=== PATIENT | female | born 1985 | race Caucasian/White ===

== ENCOUNTER 2019-09-20 15:31 | Outpatient (CLI) | payer BC, SELFPAY ==
[2019-09-20 16:42] LABS: Alanine Aminotransferase 80 U/L (4-35); Albumin Level 4.5 g/dL (3.5-5.1); Alkaline Phosphatase 93 U/L (38-126); Aspartate Amino Transferase 68 U/L (14-36); Bilirubin,Total 0.2 mg/dL (0.2-1.3); Blood Urea Nitrogen 12 mg/dL (7-17); Calcium 9.5 mg/dL (8.4-10.2); Carbon Dioxide 23 mmol/L (22-30); Chloride 104 mmol/L (98-107); Estimated Glomerular Filt Rate > 60; Glucose 88 mg/dL (65-105); Potassium 3.9 mmol/L (3.4-5.0); Sodium 140 mmol/L (137-145)
== END 2019-09-20 15:32 | disposition home or self-care (01) ==
PROVIDERS: Visit Provider Obstetrics & Gynecology
DX: E87.5 Hyperkalemia (principal)
CPT/HCPCS: 36415; 80053

== ENCOUNTER 2020-03-05 13:11 | Emergency (ER) | payer BC, SELFPAY ==
[2020-03-05 13:21] VITALS: BP 129/81; PULSE 70; RESP 16; TEMP 37.3; O2SAT 100
--- NOTE | 2020-03-05 13:33 | ED.GENADULT ---
HPI - General Adult General Chief complaint: Upper Respiratory Infection Stated complaint: Possible sinus infection Time Seen by Provider: 03/05/20 13:33 Source: patient and RN notes reviewed Mode of arrival: ambulatory Limitations: no limitations History of Present Illness HPI narrative: 34-year-old presents with upper respiratory infection, some facial congestion, facial pressure, and intermittent headache (not the worst of her life) for the past 21 days. Ibuprofen with some relief. Symptoms increase over the past 4 days with the inability to smell stinky stuff such as dirty diapers. No facial swelling. Denies cough. No nasal congestion or rhinorrhea. Denies sore throat. No high fevers, drooling, neck or throat swelling. No voice change. Denies chills, dyspnea, difficulty swallowing, jaw pain, dental pain, foreign body sensation, and rash. No chest pain or shortness of breath. LMP 03/05/20. Remains active. The patient reports she have not been diagnosed with COVID-19. The patient reports she is not waiting for the results of a COVID-19 lab test. The patient reports she do not have fever, chills, weakness, fatigue, myalgia, or facial swelling. The patient reports she do not have a new or worsening cough or shortness of breath. Denies chest pain. The patient reports she do not have any nausea, vomiting, abdominal pain, and diarrhea. Tolerating po intake well. Denies recent traveling. Denies concerns for COVID-19 or exposures been home with limited outdoor exposure except for essential household needs, work, and return home. At this time, patient is not suspected of having COVID-19. Some parts of this dictation were generated by voice recognition software and may contain typographical and/or grammatical inaccuracies. Related Data Allergies Allergy/AdvReac Type Severity Reaction Status Date / Time No Known Allergies Allergy Mild Unverified 06/02/12 16:08 Review of Systems Review of Systems: Narrative: CONSTITUTIONAL: Denies fever, chills, sweats. EYES: Denies visual changes, redness, discharge. ENT: Complains of facial congestion and pressure. Denies otalgia, rhinorrhea, congestion, sore throat. CARDIOVASCULAR: Denies chest pain, palpitations, edema. RESPIRATORY: Denies dyspnea, wheezing, cough. GASTROINTESTINAL: Denies abdominal pain, nausea, vomiting, diarrhea. GENITOURINARY: Denies dysuria, hematuria, abnormal discharge SKIN: Denies rash or itching. MUSCULOSKELETAL: Denies acute back pain, joint pain, or myalgia. NEUROLOGIC: Denies numbness, or focal weakness. Complains of intermittent HOLDER. PSYCHIATRIC: Denies anxiety or depression. All other systems reviewed & are unremarkable except as noted in HPI and below. [facility] Past Medical History Medical History (Updated 03/05/20 @ 14:07 by SUMAN Hawkins) No significant past medical history Surgical History Surgical History (Updated 03/05/20 @ 14:07 by SUMAN Hawkins) No significant past surgical history Family History Family History (Updated 03/05/20 @ 14:07 by SUMAN Hawkins) Father Alive and well Mother Alive and well Social History Social History (Updated 03/05/20 @ 14:08 by SUMAN Hawkins) Smoking status: Never smoker Tobacco type: cigarettes Second hand tobacco smoke exposure: No Alcohol intake: current Substance use: never Living arrangements: with family Occupation/Education: occupation Gender identity (if verbalized by the patient): Female Sexual Orientation (if Verbalized by the Patient): Straight or Heterosexual Comments At time of signature, agree with nurse past medical, surgical, social, and family history. There is no relevant family history pertinent to the presenting complaint. Exam Narrative: Exam Narrative: GENERAL: This is a well-nourished, well-developed patient, in no apparent distress. Talks in full sentences and ambulates with steady gait without dyspnea. HEAD: normocephalic, atrau
== END 2020-03-05 13:50 | disposition home or self-care (01) ==
PROVIDERS: Emergency Provider Nurse Practitioner Family
DX: J01.00 Acute maxillary sinusitis, unspecified (principal)
CPT/HCPCS: 99213; G0463

== ENCOUNTER 2021-05-08 10:20 | Outpatient (CLI) | payer BC, SELFPAY ==
[2021-05-08 11:45] LABS: Hematocrit 32.8 % (37.0-47.0); Hemoglobin 10.3 g/dL (12.0-15.0)
[2021-05-08 11:55] LABS: Glucose 1 Hour PP 50gm Dose 109 mg/dL
[2021-05-08 12:44] LABS: HIV 1/2 Ab P24 Ag Result Negative (Negative)
[2021-05-08] MEDS: RHO(D) IMMUNE GLOBULIN 300 MCG/2 ML SYRINGE IM (17:01)
[2021-05-11 06:59] LABS: Rapid Plasma Reagin Non-Reactive (NonReactive)
== END 2021-05-08 10:21 | disposition home or self-care (01) ==
LOC: ANHLAB 10:22
PROVIDERS: Visit Provider Obstetrics & Gynecology
DX: Z36.89 Encounter for other specified antenatal screening (principal); Z3A.00 Weeks of gestation of pregnancy not specified
CPT/HCPCS: 36415; 82947; 85014; 85018; 85461; 86592; 86703; 90384; 96372; G0432; J2790

== ENCOUNTER 2021-07-18 11:17 | Observation (INO) | payer BC, SELFPAY ==
[2021-07-18 23:17] VITALS: BMI 39.0
[2021-07-19 01:16] VITALS: BP 113/89; PULSE 68
[2021-07-19 01:30] VITALS: BP 133/89; PULSE 71
--- NOTE | 2021-07-19 03:11 | OBADM ---
This patient, Sandrine Benton, admitted to the OB room Labor/Delivery/Recovery 103 for observation. Patient/family oriented to hospital policies and general routines including ID bracelet, bed and alarms, visiting hours, pain management, procedures, bathroom and other care routines, personal items, smoking policy, room service/diet, and visiting hours. Patient/Family are encouraged to report perceived risks to care and to ask questions if they do not understand what they are told or what they should do.
--- NOTE | 2021-08-23 17:04 | PM.OBTRLD ---
OB - Triage/Final Diagnosis Visit Information Comments/Additional reasons for admission: I have assessed the risk for this patient, Sandrine Benton, and determined that she would benefit from observation care. Final Diagnosis (1) False labor: Code(s): O47.9 - False labor, unspecified Status: Acute
== END 2021-07-19 01:45 | disposition home or self-care (01) ==
PROVIDERS: Admitting Provider Obstetrics & Gynecology; Visit Provider Obstetrics & Gynecology
DX: O47.1 False labor at or after 37 completed weeks of gestation (principal); Z3A.38 38 weeks gestation of pregnancy
CPT/HCPCS: G0378; G0379

== ENCOUNTER 2021-07-30 16:50 | Inpatient (IN) | payer BC, SELFPAY ==
[2021-07-30] VITALS (77 sets, daily range): BP systolic 88–141; BP diastolic 46–100; PULSE 63–150; TEMP 36.6–37.6; O2SAT 94–100; BMI 36.8
--- NOTE | 2021-07-30 16:43 | PM.IMHP ---
H&P: HPI History of Present Illness Date/Time: 07/30/21 16:43 35 y/o @ 39w5d here for elective induction of labor. Chief Complaint: Induction of labor Review of Systems Review of Systems: All systems reviewed & are unremarkable except as noted in HPI and below Constitutional: Constitutional: Reports as per HPI and Reports no additional constitutional complaints Eyes: Eyes: Reports as per HPI ENT: Reports system reviewed and no additional complaints, except as documented Cardiovascular: Cardiovascular: Reports as per HPI Respiratory: Respiratory: Reports as per HPI Gastrointestinal: Gastrointestinal: Reports as per HPI Genitourinary: Genitourinary: Reports no additional female genitourinary complaints Musculoskeletal: Musculoskeletal: Reports no additional musculoskeletal complaints Integumentary/Breasts: Skin/Breast: Reports system reviewed and no additional complaints, except as docu Neurologic: Reports system reviewed and no additional complaints, except as documented Psychiatric: Psychiatric: Reports no additional psychiatric complaints Endocrine: Endocrine: Reports no additional endocrine complaints Hematologic/Lymphatic: Hematologic/Lymphatic: Reports no additional hematologic/lymphatic complaints Allergic/Immunologic: Allergic/Immunologic: Reports no additional allergic/immunologic complaints [facility] Past Medical History Medical History (Updated 03/06/20 @ 00:00 by [employer]) No significant past medical history Surgical History Surgical History (Updated 03/05/20 @ 14:07 by SUMAN Hawkins) No significant past surgical history Family History Family History Father Alive and well Mother Alive and well Social History Social History (Updated 03/05/20 @ 14:08 by SUMAN Hawkins) Smoking status: Never smoker Tobacco type: cigarettes Second hand tobacco smoke exposure: No Alcohol intake: current Substance use: never Gender identity (if verbalized by the patient): Female Sexual Orientation (if Verbalized by the Patient): Straight or Heterosexual Spiritual care concerns: No Meds Home Medications and Allergies Home Medications Medication Instructions Recorded Confirmed Type PNV cmb#95-ferrous fumarate-FA 1 tablet PO DAILY 07/15/21 07/19/21 History [] ferrous sulfate [Iron (ferrous 325 mg PO DAILY 07/15/21 07/19/21 History sulfate)] Allergies Allergy/AdvReac Type Severity Reaction Status Date / Time No Known Allergies Allergy Mild Unverified 06/02/12 16:08 Exam Const: General: cooperative and healthy appearing Orientation/consciousness: oriented to person, oriented to place, oriented to time and patient oriented x3 Limitations: no limitations HENMT: Head: normal to inspection Ears: hearing grossly normal bilaterally General nose exam: Normal external nose present Face and sinus: normal facial exam Mouth: Yes Normal oral and palatal mucosa present Teeth and gingiva: dentition normal Throat: posterior oropharynx normal Eyes: General: appearance normal, both eyes and all related structures Neck: Neck: normal visual inspection Thyroid: thyroid normal Chest: Chest palpation & inspection: normal inspection of the chest Resp: Effort & Inspection: normal respiratory effort Auscultation: clear to auscultation bilaterally Cardio: Rate: regular rate Rhythm: regular rhythm GI: Inspection: normal to inspection : General: Yes bimanual renal exam normal bilaterally Skin: General skin exam: normal color and no rashes or lesions noted Neuro: General: oriented to person, oriented to place, oriented to time and patient oriented x3 Extrem: General: normal to inspection Psych: Mental Status: mental status grossly normal
--- OUTSIDE RECORDS SUMMARY | 2021-07-30 16:54 | XMS_ITS ---
:1985 Author Care Team Providers Name Role Phone Anna Pollard Primary Care Provider Unavailable Allergies Code Code System Name Reaction Severity Status Onset NKDA ? Medications Name Status Start Date Stop Date ? ? amoxicillin 875 mg tablet Completed ? 2020 TK 1 T PO Q 12 H drospirenone 3 mg-ethinyl estradiol 0.02 mg tablet Completed ? 01/01/2021 TK 1 T PO QD ergocalciferol (vitamin D2) 1,250 mcg (50,000 unit) capsule Comp leted ? 01/01/2021 TK 1 C PO Q WK fluticasone propionate 50 mcg/actuation nasal spray,suspension C ompleted ? 01/01/2021 INSTIL 1 SPRAY PER NOSTRIL BID iron Active ? Not available loratadine 10 mg tablet Completed ? 01/02/20 TK 1 T PO D ondansetron 4 mg disintegrating tablet Completed ? 07/21/2021 DISSOLVE 1 TABLET ON THE TONGUE EVERY 6 TO 8 HOURS NEEDED ondansetron HCl 4 mg tablet Completed ? 03/01 TAKE 1 TABLET BY MOUTH THREE TIMES DAILY Active ? Not available Problems Name Status Onset Date Source ? Detection Examination Unknown 12/12/[address] Concept Unknown 12/12/2017 History Screening Unknown 01/16/2018 History , Childbirth and Puerperium Unknown 01/16/2018 History Finding Screening for Malformation Unknown 03/16/2018 History Gestation Period, 34 Weeks Unknown 06/21/2018 Histo ry Normal in Multigravida Unknown
--- OUTSIDE RECORDS SUMMARY | 2021-07-30 16:54 | XMS_ITS | Encounter Summary ---
:1985 Author Reason for Visit OB visit 38w3d Assessment and Plan 1. Routine care Discussion Note: None recorded.Patient educational handouts: No information available. Plan of Care Reminders Provider Appointments Ob Routine Micaela Pollard CNM 08/05/2021 11:15AM Lab None ? ? recorded. Referral None ? ? recorded. Procedures None ? ? recorded. Surgeries None ? ? recorded. Imaging None ? ? recorded. Medications Name Start Date ? ? iron ? ? Medications Administered None recorded. Vitals Height Weight BMI Blood Pressure 5 ft 6 in 226 lbs 36.5 kg/m2 128/86 mm[Hg] Results Lab Results None recorded. Allergies Code Code System Name Reaction Severity Onset NKDA ? ? ? Problems Name Status Onset Date Source ? Active 01/22/2021 ? Procedures None recorded. Vaccine List None recorded. Social History Tobacco Smoking Status Never Smoker What is the highest grade or level of school you have [id number] 0-4 completed or the highest
--- OUTSIDE RECORDS SUMMARY | 2021-07-30 16:54 | XMS_ITS | Encounter Summary ---
:1985 Author Reason for Visit OB visit 37W3D Assessment and Plan 1. Routine care Discussion [...] BMI Blood Pressure 5 ft 6 in 228 lbs 36.8 kg/m2 118/80 mm[Hg] Results Lab Results None recorded. Allergies Code Code System Name Reaction Severity Onset NKDA ? ? ? Problems Name Status Onset Date Source ? Active 01/22/2021 ? Procedures None recorded. Vaccine List None recorded. Social History Tobacco Smoking Status Never Smoker What is the highest grade or level of school you have [id number] 0-4 completed or the highest
--- OUTSIDE RECORDS SUMMARY | 2021-07-30 16:54 | XMS_ITS | Encounter Summary ---
:1985 Author Reason for Visit OB visit 39W3D Assessment and Plan 1. Routine care Discussion [...] BMI Blood Pressure 5 ft 6 in 227 lbs 36.6 kg/m2 133/85 mm[Hg] Results Lab Results None recorded. Allergies Code Code System Name Reaction Severity Onset NKDA ? ? ? Problems Name Status Onset Date Source ? Active 01/22/2021 ? Procedures None recorded. Vaccine List None recorded. Social History Tobacco Smoking Status Never Smoker What is the highest grade or level of school you have [id number] 0-4 completed or the highest
--- OUTSIDE RECORDS SUMMARY | 2021-07-30 16:55 | XMS_ITS | Encounter Summary ---
:1985 Author Reason for Visit OB visit 28W2D Assessment and Plan 1. Routine care Discussion [...] BMI Blood Pressure 5 ft 6 in 219 lbs 35.3 kg/m2 116/78 mm[Hg] Results Lab Results None recorded. Allergies Code Code System Name Reaction Severity Onset NKDA ? ? ? Problems Name Status Onset Date Source ? Active 01/22/2021 ? Procedures Date Name Performed by ? 04/15/2021 US, Obstetric, 2Nd or 3Rd Trimester Angie rice
--- OUTSIDE RECORDS SUMMARY | 2021-07-30 16:55 | XMS_ITS | Encounter Summary ---
:1985 Author Reason for Visit OB visit 30w3d Assessment and Plan 1. Routine care Discussion [...] BMI Blood Pressure 5 ft 6 in 220 lbs 35.5 kg/m2 126/83 mm[Hg] Results Lab Results None recorded. Allergies Code Code System Name Reaction Severity Onset NKDA ? ? ? Problems Name Status Onset Date Source ? Active 01/22/2021 ? Procedures None recorded. Vaccine List None recorded. Social History Tobacco Smoking Status Never Smoker What is the highest grade or level of school you have [id number] 0-4 completed or the highest
--- OUTSIDE RECORDS SUMMARY | 2021-07-30 16:55 | XMS_ITS | Encounter Summary ---
:1985 Author Reason for Visit OB visit 32W3D Assessment and Plan 1. Routine care Discussion [...] BMI Blood Pressure 5 ft 6 in 222 lbs 35.8 kg/m2 135/83 mm[Hg] Results Lab Results None recorded. Allergies Code Code System Name Reaction Severity Onset NKDA ? ? ? Problems Name Status Onset Date Source ? Active 01/22/2021 ? Procedures None recorded. Vaccine List None recorded. Social History Tobacco Smoking Status Never Smoker What is the highest grade or level of school you have [id number] 0-4 completed or the highest
--- OUTSIDE RECORDS SUMMARY | 2021-07-30 16:55 | XMS_ITS | Encounter Summary ---
:1985 Author Reason for Visit OB visit Pt is here today for her routine ob 36.3 gbs screen Assessment and Plan 1. Routine care Discussion [...] ft 6 in 228 lbs 36.8 kg/m2 128/79 mm[Hg] Results Lab Results None recorded. Allergies Code Code System Name Reaction Severity Onset NKDA ? ? ? Problems Name Status Onset Date Source ? Active 01/22/2021 ? Procedures None recorded. Vaccine List None recorded. Social History Tobacco Smoking Status Never Smoker What is the highest grade or level of school you have [id number] 0-4
--- OUTSIDE RECORDS SUMMARY | 2021-07-30 16:55 | XMS_ITS | Encounter Summary ---
:1985 Author Reason for Visit OB visit 34w3d Assessment and Plan 1. Routine care Discussion [...] BMI Blood Pressure 5 ft 6 in 225 lbs 36.3 kg/m2 129/79 mm[Hg] Results Lab Results None recorded. Allergies Code Code System Name Reaction Severity Onset NKDA ? ? ? Problems Name Status Onset Date Source ? Active 01/22/2021 ? Procedures None recorded. Vaccine List None recorded. Social History Tobacco Smoking Status Never Smoker What is the highest grade or level of school you have [id number] 0-4 completed or the highest
[2021-07-30 17:38] LABS: Basophils Absolute Auto 0.1 K/mm3 (0.0-0.1); Basophils Percent Auto 0.6 % (0.2-1.2); Eosinophils Absolute Auto 0.1 K/mm3 (0-0.3); Eosinophils Percent Auto 0.8 % (0-4.4); Hematocrit 32.1 % (37.0-47.0); Hemoglobin 9.9 g/dL (12.0-15.0); Immature Granulocyte Absolute 0.02 K/mm3 (0.00-0.031); Immature Granulocyte Percent A 0.3 % (0-0.5); Lymphocytes Absolute Auto 1.74 K/mm3 (0.9-3.2); Lymphocytes Percent Auto 22.1 % (18.3-44.2); Mean Corpuscular HGB Conc 30.8 g/dl (32-36); Mean Corpuscular Hemoglobin 22.9 pg (26-34); Mean Corpuscular Volume 74.1 fl (80-100); Mean Platelet Volume 11.1 fl (7.4-10.4); Monocytes Absolute Auto 0.7 K/mm3 (0.1-0.6); Monocytes Percent Auto 8.6 % (2.6-8.5); Neutrophils Absolute Auto 5.3 K/mm3 (1.3-6.7); Neutrophils Percent Auto 67.6 % (45.5-73.1); Platelet Count Result 213 k/mm3 (150-375); Red Blood Count 4.33 M/mm3 (4.2-5.4); Red Cell Distribution Width 18.8 % (11.5-14.5); White Blood Count 7.9 K/mm3 (4.5-10.0)
[2021-07-30] MEDS: LACTATED RINGERS 1,000 ML 125 ML IV CONT ×3 (17:43→22:01)
[2021-07-30] MEDS: OXYTOCIN 30 UNITS/NS 500 ML 30 UNITS/500 ML BAG IV CONT (17:45)
--- NOTE | 2021-07-30 19:27 | WPDANESEPP ---
Anes - Eval Pre Procedure Procedure: labor epidural Date/Time: 07/30/21 19:27 Surgeon: barry Preop Diagnosis: pain during labor Pre Op Diagnosis: iol Patient Data Age: 35 Gender: F Height: 1.68 m Weight: 103.5 kg Last Vital Signs Temp 36.6 C 07/30/21 19:00 Pulse 63 07/30/21 19:26 BP 141/90 H 07/30/21 19:26 Allergies Allergy/AdvReac Type Severity Reaction Status Date / Time No Known Allergies Allergy Mild Unverified 06/02/12 16:08 Home Medications Medication Instructions Recorded Confirmed Type PNV cmb#95-ferrous fumarate-FA 1 tablet PO DAILY 07/15/21 07/30/21 History [] ferrous sulfate [Iron (ferrous 325 mg PO DAILY 07/15/21 07/30/21 History sulfate)] Laboratory Tests 07/30/21 07/30/21 07/30/21 17:28 17:28 17:28 WBC 7.9 K/mm3 K/mm3 (4.5-10.0) RBC 4.33 M/mm3 M/mm3 (4.2-5.4) Hgb 9.9 g/dL L g/dL (12.0-15.0) Hct 32.1 % L % (37.0-47.0) MCV 74.1 fl L fl (80-100) MCH 22.9 pg L pg (26-34) MCHC 30.8 g/dl L g/dl (32-36) RDW 18.8 % H % (11.5-14.5) Plt Count 213 k/mm3 k/mm3 (150-375) MPV 11.1 fl H fl (7.4-10.4) Immature Gran % (Auto) 0.3 % % (0-0.5) Neut % (Auto) 67.6 % % (45.5-73.1) Lymph % (Auto) 22.1 % % (18.3-44.2) Leslie % (Auto) 8.6 % H % (2.6-8.5) Eos % (Auto) 0.8 % % (0-4.4) Baso % (Auto) 0.6 % % (0.2-1.2) Lymph # (Auto) 1.74 K/mm3 K/mm3 (0.9-3.2) Leslie # (Auto) 0.7 K/mm3 H K/mm3 (0.1-0.6) Eos # (Auto) 0.1 K/mm3 K/mm3 (0-0.3) Baso # (Auto) 0.1 K/mm3 K/mm3 (0.0-0.1) Abs Immat Gran (auto) 0.02 K/mm3 K/mm3 (0.00-0.031) Absolute Neuts (auto) 5.3 K/mm3 K/mm3 (1.3-6.7) Absolute Nucleated RBC 0.0 K/mm3 K/mm3 (0.0-0.012) Nucleated RBC % 0.0 % % (0.0-0.2) RPR Pending Blood Type O Negative Antibody Screen Negative Patient hx anesthesia problems: none Family hx anesthesia problems: none Results Review: All pre-operative results and documents have been reviewed as part of the pre-operative evaluation. [facility] Past Medical History Medical History (Updated 07/30/21 @ 19:28 by Sumi Ortiz CRNA) Intrauterine No significant past medical history Obesity Surgical History Surgical History (Updated 03/05/20 @ 14:07 by SUMAN Hawkins) No significant past surgical history Family History Family History Father Alive and well Mother Alive and well Social History Social History (Updated 03/05/20 @ 14:08 by SUMAN Hawkins) Smoking status: Never smoker Tobacco type: cigarettes Second hand tobacco smoke exposure: No Alcohol intake: current Substance use: never Gender identity (if verbalized by the patient): Female Sexual Orientation (if Verbalized by the Patient): Straight or Heterosexual Spiritual care concerns: No Exam Day of Procedure 07/30/21 19:27
[2021-07-31] VITALS (25 sets, daily range): BP systolic 114–144; BP diastolic 55–94; PULSE 67–229; RESP 16–18; TEMP 36.7–37.3; O2SAT 95–100
--- NOTE | 2021-07-31 01:25 | PM.OBPRVD ---
OB - Delivery Note Procedure Delivery date: 07/31/21 Intrapartal events: None Induction method: none Delivery monitor: external FHT and external uterine Route of delivery: Episiotomy description: None Laceration Description: None Quantitative Blood Loss (ml): 204 Anesthesia type: Epidural Narrative: Mother and baby in stable condition. Cord gasses collected and handed off to staff. Baby Date of : 07/31/21 Time of : 00:38 Weeks of gestation at delivery: 39 Infant gender: Male Weight (pounds): 7 Weight (ounces): 13 presentation: vertex position: Right Occiput Anterior Placenta delivery description: Spontaneous cord vessel description: 3 Vessels and Delayed Cord Clamping
[2021-07-31] MEDS: OXYTOCIN 30 UNITS/NS 500 ML 30 UNITS/500 ML BAG 125 UNITS IV CONT (01:35)
[2021-07-31] MEDS: IBUPROFEN 600 MG TABLET PO ×2 (01:47→17:00)
--- NOTE | 2021-07-31 03:24 | OBPPTRN ---
Patient transferred to post room #282 via wheelchair. Oriented to unit, room, information board, rooming in, admission packet and security measures. Patient verbalizes understanding.
[2021-07-31] MEDS: ACETAMINOPHEN 325 MG TABLET 650 MG PO (09:53)
[2021-07-31] MEDS: MULTIVIT/MIN/PREN/FOL AC/IRON TABLET 1 TAB PO (09:53)
[2021-07-31] MEDS: DOCUSATE SODIUM 100 MG CAPSULE PO ×2 (09:53→17:00)
[2021-07-31] MEDS: POLYSACCHARIDE IRON COMPLEX 150 MG CAPSULE PO ×2 (09:53→17:00)
--- NOTE | 2021-07-31 13:05 | PC.NURSE ---
Consult with pt., mother reports infant has been sleepy and not fed since 0630, mother has given 4mls of formula. Reviewed to wake to feed every three hours calling out for assist if is unable to feed. is able to freely thrust tongue past gum ridge and flange both lips. Skin is intact on both nipples, no redness and bruising noted. Reviewed infant feeding cues, frequencies, duration of feedings, feeding elimination flow sheet, and signs of adequate intake. Demonstrated stimulation techniques to wake for feeding. Assisted with to breast. Reviewed positioning/alignment in cross cradle, holding breast in ?U? hold and guided asymmetrical latch on. Reviewed rational for each. Several attempts to latch able to latch correctly, mostly due to sleepiness and lack of effort. Once latched infant nursed eagerly with steady draws and occasional swallowing noted for short burst followed by long pausing. Reviewed signs of a correct latch, effective nursing and suck swallow ratio. Suggested mother stimulate while feeding to increase stimulation for milk supply, for increased intake and to assist with maintaining deep latch. would slip to shallow latch causing tenderness then release latch. Demonstrated how to adjust latch more deeply while feeding as needed. Mother reports she can feel the difference in latch with no tenderness. At least 15 minutes of feeding observed, needs constant stimulation to keep awake and nursing. Nipple care reviewed of lanolin after feedings, warm compresses as needed. Instructed mother to call out for RN assistance if she is unable to latch infant for feeding or she has discomfort with nursing. Instructed feeding should be initiated three hours from start of last feeding or if feeding cues are noted before. Mother voiced understanding of information shared.
[2021-08-01 04:48] LABS: Hematocrit 29.6 % (37.0-47.0); Hemoglobin 8.8 g/dL (12.0-15.0)
--- NOTE | 2021-08-01 09:35 | PM.OBPNVD ---
OB - PN: Subj Subjective Date/time seen: 08/01/21 09:35 Patient comments: no complaints baby status: doing well OB - PN: Obj Data Labs CBC & Chem 7: 08/01/21 04:08 Labs: Laboratory Results - last 24 hr 08/01/21 08/01/21 04:08 04:08 Hgb 8.8 L Hct 29.6 L Blood Type O Negative Antibody Screen Negative OB - PN A/P Plan day: 1 Plan: routine care Time Spent With Patient Time: Total time spent is greater than 50% in coordination of care (as documented) at patient's floor/unit and/or counseling patient: Time with patient: less than 15 minutes Review of Systems Review of Systems: All systems reviewed & are unremarkable except as noted in HPI and below Exam Narrative: Fundus firm and vaginal flow controlled. No lower ext redness, warmth, or edema. Negative homans. Const: General: comfortable Chest: Breast/axilla inspection: normal inspection of the breasts Resp: Effort & Inspection: normal respiratory effort Cardio: Rate: regular rate GI: GI Palp: Yes Soft to palpation Psych: Appearance: grossly normal Affect: normal affect Attitude: cooperative Thought content: Yes Normal thought content present Judgement: Good judgement present (Psych)
--- NOTE | 2021-08-01 09:37 | PM.OBDSVD ---
DS: Admitting Diagnosis Discharge Date 08/01/21 Admitting Diagnosis Induction OB - DS: Summary OB Procedures : None OB Procedures Intrapartum: Spontaneous Vag Delivery OB Procedures: : None Time Spent with Patient Time attestation: Total time spent providing and/or coordinating discharge services: DS: Data Data Completed and Pending Labs on day of discharge: Labs from last 24 hours 08/01/21 08/01/21 04:08 04:08 Hgb 8.8 L Hct 29.6 L Blood Type O Negative Antibody Screen Negative Screen Pending Baby's Blood Type Pending Baby's SHANNA Pending Doses of RhIg Required Pending Discharge Plan Discharge Attending physician on discharge: Anna Pollard Discharging Clinician: Anna Pollard Patient Disposition: Home, Self-Care Activity: pelvic rest Diet: as tolerated Patient Instructions: Antibiotic Form Stand Alone Forms: General Discharge Information Follow-up/Referrals: Anna Pollard, CNM [Certified Nurse [employer]rap Yard Worker] - Discharge Medications: New polysaccharide iron complex 150 mg iron Capsule 150 mg PO BIDWM Qty: 60 RF: 0 Continued ferrous sulfate [Iron (ferrous sulfate)] 325 mg (65 mg iron) Tablet 325 mg PO DAILY RF: 0 PNV cmb#95-ferrous fumarate-FA [] 28 mg iron- 800 mcg Tablet 1 tablet PO DAILY RF: 0 Date of admission: 07/30/21 16:50 Primary Care Provider: PHYSICIAN,HAND CARVER Admitting Provider: Taya Mccurdy Attending physician on admission: Taya Mccurdy Condition: Stable
[2021-08-01 11:00] VITALS: BP 111/77; PULSE 69; RESP 20; TEMP 36.3; O2SAT 99
[2021-08-01] MEDS: MULTIVIT/MIN/PREN/FOL AC/IRON TABLET 1 TAB PO (11:14)
[2021-08-01] MEDS: DOCUSATE SODIUM 100 MG CAPSULE PO (11:14)
[2021-08-01] MEDS: POLYSACCHARIDE IRON COMPLEX 150 MG CAPSULE PO (11:14)
[2021-08-01] MEDS: IBUPROFEN 600 MG TABLET PO (11:14)
[2021-08-01] MEDS: RHO(D) IMMUNE GLOBULIN 300 MCG/2 ML SYRINGE IM (12:15)
[2021-08-03 07:52] VITALS: BP 134/88; PULSE 76; RESP 20; TEMP 36.4; O2SAT 99
[2021-08-03 09:28] LABS: Rapid Plasma Reagin Non-Reactive (NonReactive)
== END 2021-08-01 13:05 | disposition home or self-care (01) | DRG 807 ==
LOC: ANHLDR 16:53 → ANHOB2 07-31 03:24
PROVIDERS: Advanced Practice Midwife; Admitting Provider Obstetrics & Gynecology; Visit Provider Obstetrics & Gynecology
DX: O36.8330 Maternal care for abnormalities of the fetal heart rate or rhythm, third trimester, not applicable or unspecified (principal); Z37.0 Single live birth; Z3A.39 39 weeks gestation of pregnancy
CPT/HCPCS: 36415; 85014; 85018; 85025; 85461; 86592; 86850; 86900; 86901; 90384; A9270; J2590; J2790; J2795; J7120

== ENCOUNTER → 2022-01-13 08:57 | Outpatient (CLI) | payer BC, SELFPAY ==
--- NOTE | ~2022-01-13 | MMUS_ITS ---
EXAMINATION: MM diagnostic ramon BI w darian, US breast BI complete HISTORY: Left breast lump TECHNIQUE: Additional 3-D tomosynthesis images of the breasts were performed and synthetic 2-D images were generated. CAD analysis was submitted and interpreted. High resolution bilateral complete breas t ultrasound was performed. COMPARISON: No prior studies for comparison. BREAST PARENCHYMAL COMPOSITION: The breasts are heterogenously dense, which may obscure small masses FINDINGS: MAMMOGRAPHIC FINDINGS: There are no suspicious masses, calcifications or architectural distortion in either breast to sugges t malignancy. ULTRASOUND: Complete bilateral US of all 4 quadrants of the breasts and retroareolar region was reviewed. Normal heterogeneous echotexture in both breasts without suspicious mass to suggest malignancy. In the left breast at 3-4:00, 9 cm from the nipple there is a benign 1.2 cm intramammary lymph node. IMPRESSION: 1. No evidence for malignancy in either breast. 2. Routine yearly screening mammogram and regular clinical breast examination are recommended. BI-RADS Category 2: Benign finding(s). Reviewed, dictated and finalized at location A. IMPRESSION: 1. No evidence for malignancy in either breast. 2. Routine yearly screening mammogram and regular clinical breast examination a re recommended. BI-RADS Category 2: Benign finding(s).
== END ==
PROVIDERS: PCP Nurse Practitioner; Visit Provider Nurse Practitioner
DX: N63.20 Unspecified lump in the left breast, unspecified quadrant (principal)
CPT/HCPCS: 76641; 77062; 77066; G0279

== ENCOUNTER 2025-03-14 09:58 | Emergency (ER) | payer BC, SELFPAY ==
--- NOTE | 2025-03-14 10:01 | ED_ITS ---
HPI - URI/Sore Throat General Chief Complaint: Upper Respiratory Infection Stated Complaint: Sinus Time Seen by Provider: 03/14/25 10:07 Source: patient, RN notes reviewed and old records reviewed Mode of arrival: ambulatory Limitations: no limitations History of Present Illness HPI Narrative: A 39-year-old female presents to the [facility] with a 3 day history of sinus congestion. Had a child in here over the weekend, diagnosed with an ear infection. Patient reports postnasal drainage Has taken Tylenol Severe cold Treatments prior to arrival: cold medicine Related Data Allergies Allergy/AdvReac Type Severity Reaction Status Date / Time No Known Allergies Allergy Mild Verified 03/14/25 10:00 Review of Systems Review of Systems: All systems reviewed & are unremarkable except as noted in HPI and below Constitutional: Constitutional: Reports no additional constitutional complaints ENT: Reports as per HPI and Reports sinus pressure Cardiovascular: Cardiovascular: Reports no additional cardiovascular complaints, Denies chest pain and Denies dyspnea Respiratory: Respiratory: Reports no additional respiratory complaints, Denies chest congestion, Denies cough and Denies dyspnea Musculoskeletal: Musculoskeletal: Reports no additional musculoskeletal complaints Integumentary/Breasts: Skin/Breast: Reports system reviewed and no additional complaints, except as docu PMFSH Past Medical History Medical History Obesity Intrauterine No significant past medical history Surgical History Surgical History No significant past surgical history Family History Family History Father Alive and well Mother Alive and well Social History Social History Smoking status: Never smoker Tobacco type: cigarettes Second hand tobacco smoke exposure: No Alcohol intake: current Substance use: never Living arrangements: with family Occupation/Education: occupation Gender identity (if verbalized by the patient): Female Sexual Orientation (if Verbalized by the Patient): Straight or Heterosexual Spiritual care concerns: No Comments At the time of my signature, I reviewed and agree with the nursing past medical, surgical, social, and family history. There is no relevant family history pertinent to the patient complaint. Exam Const: General: cooperative, healthy appearing, comfortable, no acute dis tress, well developed, alert and well nourished Nutritional Appearance: well nourished Orientation/consciousness: patient oriented x3 Limitations: no limitations HENMT: Head: normal to inspection Ears: hearing grossly normal bilaterally, external ears normal, TM's normal bilaterally, EAC's normal, mastoids normal and no periauricular adenopathy Mouth: Yes Normal oral and palatal mucosa present, Yes lip normal, Yes tongue normal and Yes moist mucous membranes Throat: uvula midline, postnasal drainage and no uvular edema Eyes: General: appearance normal, both eyes and all related structures Alignment and Position: alignment normal Neck: Neck: normal visual inspection, full ROM, no lymphadenopathy and no meningeal signs Chest: Chest palpation & inspection: normal inspection of the chest Resp: Effort & Inspection: normal respiratory effort and able to speak in complete sentences Auscultation: clear to auscultation bilaterally, no crackles, no rales, no rhonchi and no wheezes Cardio: Rate: regular rate Skin: General skin exam: normal color and no rashes or lesions noted Neuro: General: patient oriented x3, gait normal, moves all extremities and no meningeal signs Cognition (Neuro): normal cognition Speech: normal speech Gait exam (Neuro): Normal gait present Extrem: General: normal to inspection, full ROM, capillary refill normal and normal gait Psych: Appearance: grossly normal and well kempt Mental Status: mental status grossly normal Speech and movement: Normal speech and movement present and Clear speech present Affect: normal affect Attitude: cooperative Course Course Level of Care: Express Care Visit Vital Signs Vital signs: Vital Signs Temperature 97.8 F 03/14/25 10:05 Pulse Rate 83 03/14/25 10:05 Respiratory Rate 16 03/14/25 10:05 Blood Pressure 123/68 03/14/25 10:05 Pulse Oximetry 100 03/14/25 10:05 Oxygen Delivery Room Air 03/14/25 10:05 Temperature 97.8 F 03/14/25 10:05 Pulse Rate 83 03/14/25 10:05 Respiratory Rate 16 03/14/25 10:05 Blood Pressure 123/68 03/14/25 10:05 Pulse Oximetry 100 03/14/25 10:05 Oxygen Delivery Room Air 03/14/25 10:05 Reviewed MDM - URI/Sore Throat MDM Narrative Medical decision making narrative: Patient sitting in exam room. Patient is nontoxic, vitals stable. Patient presents for 3 day history of URI symptoms Patient is flu, COVID and strep were negative in clinic, will send for strep culture No acute findings other than postnasal drainage noted exam Patient appropriate for outpatient treatment with close follow-up Discharge instructions reviewed with patient, as well as provided in writing per nursing staff. The instructions also include specific and strict return/GO TO THE ER as well as f/u information. All questions have been answered, and the patient deny any further questions with discharge and discharge plan. Some parts of this dictation were generated by voice recognition software and may contain typographical and/or grammatical inaccuracies. Differential Diagnosis Differential diagnosis: Likely upper respiratory infection, otitis media, sinusitis, viral infection, bronchitis, influenza and pharyngitis Lab Data Labs: Lab Results 03/14/25 03/14/25 03/14/25 Range/Units 10:19 10:19 10:19 POC Influenza A Ag Negative Negative (Negative) POC Influenza B Ag Negative Negative (Negative) POC SARS CoV-2 Ag Negative (Negative) POC Grp A Strep Screen (Negative) 03/14/25 03/14/25 Range/Units 10:19 10:19 POC Influenza A Ag (Negative) POC Influenza B Ag (Negative) POC SARS CoV-2 Ag Negative (Negative) POC Grp A Strep Screen Negative Negative (Negative) Reviewed Critical Care Time Critical Care Time Critical Care Time: No Discharge Plan Discharge Clinical Impression: Sinusitis, Viral infection Patient Disposition: Home Condition: Stable Instructions: Antibiotic Form, Sinusitis (ED) Additional Instructions: Your rapid strep swab was negative today at [facility]. A throat culture will be sent to the laboratory for further testing. If the test is positive, you will receive a phone call within 48 hours and an appropriate antibiotic will be initiated at that time. Your rapid COVID test were negative Your rapid flu test was negative Your symptoms are likely due to a viral illness, which is not treated with antibiotics. Typically viral infections last 7-10 days, can linger for couple of weeks. It is very important to treat your symptoms. Drink plenty of water, Gatorade, Pedialyte, ice pops or Jell-O. -Alternate Tylenol and Motrin per package directions for fever or pain. You can alternate every 4 hours -Antihistamine medication such as Zyrtec/Claritin/Pamela during the day can help improve symptoms. -doing daily nasal irrigations can help relieve pressure your sinuses. Things like a Neti pot -Use Flonase twice a day for 5 days then daily to help reduce the inflammation and dry up your sinuses. -You can also use Mucinex. Be sure to drink plenty of water with this medication at least 8 ounces with every dose and it is important to drink 8 to 10 glasses of water per day. Water is a natural decongestant -Eat and drink things that are easy to swallow, like tea or soup, or popsicles. -Oral rinses such as: Salt water gargles and/or may use topical anesthetic (eg. Chloraseptic spray) or lozenges to relieve dryness or throat pain). -Frequent hand washing or hand museum attendant is one of the best ways to prevent spread of infection. -Using a vaporizer or humidifier at night will also help thin secretions and help with coughing up phlegm. -Follow up with primary care provider in 7-10 days if condition is not improving - For new or worsening symptoms go directly to the nearest ER Patient Language: Nicaraguan Follow-up/Referrals: UNKNOWN,DOCTOR [Non-Staff] - Stand Alone Forms: Work/School Release IP Time of Disposition: 10:25
[2025-03-14 10:05] VITALS: BP 123/68; PULSE 83; RESP 16; TEMP 36.6; O2SAT 100
[2025-03-14 10:35] LABS: EDCOVIDSCREEN Negative (Negative); EDINFLUASCREEN Negative (Negative); EDINFLUBSCREEN Negative (Negative); EDSTREPNEGPOS1 Negative (Negative)
[2025-03-14 10:36] LABS: EDCOVIDSCREEN Negative (Negative); EDINFLUASCREEN Negative (Negative); EDINFLUBSCREEN Negative (Negative); EDSTREPNEGPOS1 Negative (Negative)
== END 2025-03-14 10:35 | disposition home or self-care (01) ==
PROVIDERS: Emergency Provider Nurse Practitioner
DX: J32.9 Chronic sinusitis, unspecified (principal); B34.9 Viral infection, unspecified; Z20.822 Contact with and (suspected) exposure to COVID-19; E66.9 Obesity, unspecified; Z68.33 Body mass index [BMI] 33.0-33.9, adult
CPT/HCPCS: 87081; 87426; 87804; 87880; 99213; G0463